=== PATIENT | male | born 1945 | race Caucasian/White ===

== ENCOUNTER 2019-05-31 10:00 | Outpatient (CLI) | payer MEDICARE, BC, SELFPAY ==
--- NOTE | 2019-05-31 10:09 | FL_ITS ---
WS: [id number] [place] barium swallow [id number] REASON FOR EXAM: ESOPHAGEAL DYSPHAGIA FLUOROSCOPY TIME: 1.1 minutes FINDINGS: In the proximal esophagus there appears to be a small Zenker's diverticulum this is inferio r to the metal plate anteriorly place. There is mild lateral displacement of the barium swallow towar d the left side The distal esophagus was normal no reflux was noted. The stomach was normal as well as the duodenum.. FL/FL barium swallow [id number] IMPRESSION: Small diverticula most likely a Zenker's diverticulum in the upper esophagus There is mild lateral displacement of the barium column toward the left side in the area of the plating anteriorly. The remaining swallow study was normal and the stomach was normal.
== END 2019-05-31 10:01 | disposition home or self-care (01) ==
LOC: RAD 10:01
PROVIDERS: Family Provider Family Medicine; Visit Provider Family Medicine
DX: R13.19 Other dysphagia (principal)
CPT/HCPCS: 74220

== ENCOUNTER 2021-05-16 11:44 | Emergency (ER) | payer MEDICARE, BC, SELFPAY ==
[2021-05-16 12:33] VITALS: BP 123/81; PULSE 76; RESP 16; TEMP 36.4; O2SAT 100; BMI 18.7
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
[2021-05-16] MEDS: dexamethasone 10 mg/mL INJ IM (13:36)
[2021-05-16] MEDS: ketorolac 30 mg/mL INJ IM (13:36)
[2021-05-16] MEDS: orphenadrine 30 mg/mL Inj 2 mL 60 MG IM (13:36)
--- NOTE | 2021-05-18 10:31 | DCPLANNER ---
Addendum entered by Ann Varner 06/12/21 13:51: engineering manager was told that when clinic called patient to schedule a follow up appointment, that patient stated that he is following up where he lives. Original Note: engineering manager had message to schedule a follow up appointment for patient with ortho. engineering manager called the ortho clinic, spoke with Caitlin, gave clinic patients information. engineering manager was told that patients information would be printed and reviewed. Clinic will call patient with appointment information.
== END 2021-05-16 14:04 | disposition home or self-care (01) ==
PROVIDERS: Emergency Provider Nurse Practitioner Family
DX: M54.12 Radiculopathy, cervical region (principal)
CPT/HCPCS: 96372; 99283; J1100; J1885; J2360

== ENCOUNTER → 2022-09-21 11:07 | Outpatient (BNVA) | payer MEDICARE, BC, SELFPAY | PROVIDERS: PCP Family Medicine; Visit Provider Nurse Practitioner Family | DX: L81.4 Other melanin hyperpigmentation (principal); D22.5 Melanocytic nevi of trunk; Z71.89 Other specified counseling; L85.3 Xerosis cutis; L57.8 Other skin changes due to chronic exposure to nonionizing radiation; L57.0 Actinic keratosis; D69.2 Other nonthrombocytopenic purpura; L44.8 Other specified papulosquamous disorders; L82.1 Other seborrheic keratosis; L82.0 Inflamed seborrheic keratosis; Z85.828 Personal history of other malignant neoplasm of skin | CPT/HCPCS: 17004; 17110; 99213 ==

== ENCOUNTER → 2022-12-31 11:12 | Outpatient (BNVA) | payer MEDICARE, BC, SELFPAY | PROVIDERS: PCP Family Medicine; Visit Provider Nurse Practitioner Family | DX: Z12.5 Encounter for screening for malignant neoplasm of prostate (principal); M77.9 Enthesopathy, unspecified; M54.9 Dorsalgia, unspecified | CPT/HCPCS: G0103 ==

== ENCOUNTER → 2023-01-06 09:58 | Outpatient (BNVA) | payer MEDICARE, BC, SELFPAY | PROVIDERS: PCP Nurse Practitioner Family; Visit Provider Nurse Practitioner Family | DX: R97.20 Elevated prostate specific antigen [PSA] (principal); M54.9 Dorsalgia, unspecified; N39.0 Urinary tract infection, site not specified | CPT/HCPCS: 81000; 87086 ==

== ENCOUNTER → 2023-10-26 15:07 | Outpatient (BNVA) | payer MEDICARE, BC, SELFPAY | PROVIDERS: PCP Nurse Practitioner Family; Visit Provider Nurse Practitioner Family | DX: L57.0 Actinic keratosis (principal); D22.5 Melanocytic nevi of trunk; L82.1 Other seborrheic keratosis; L57.8 Other skin changes due to chronic exposure to nonionizing radiation; Z85.828 Personal history of other malignant neoplasm of skin; L81.4 Other melanin hyperpigmentation; D18.01 Hemangioma of skin and subcutaneous tissue | CPT/HCPCS: 17004; 99213 ==

== ENCOUNTER → 2024-01-31 13:41 | Outpatient (BNVA) | payer MEDICARE, BC, SELFPAY | PROVIDERS: PCP Nurse Practitioner Family; Visit Provider Nurse Practitioner Family | DX: L57.0 Actinic keratosis (principal); D69.2 Other nonthrombocytopenic purpura; D48.5 Neoplasm of uncertain behavior of skin; L57.8 Other skin changes due to chronic exposure to nonionizing radiation; Z85.828 Personal history of other malignant neoplasm of skin | CPT/HCPCS: 11102; 17000; 99213 ==

== ENCOUNTER → 2024-11-16 11:26 | Outpatient (BNVA) | payer MEDICARE, BC, SELFPAY | PROVIDERS: PCP Nurse Practitioner Family; Visit Provider Nurse Practitioner Family | DX: L82.1 Other seborrheic keratosis (principal); L82.0 Inflamed seborrheic keratosis; L57.0 Actinic keratosis; D48.5 Neoplasm of uncertain behavior of skin | CPT/HCPCS: 11102; 17004; 99214 ==

== ENCOUNTER → 2024-12-12 10:06 | Outpatient (BNVA) | payer MEDICARE, BC, SELFPAY | PROVIDERS: PCP Nurse Practitioner Family; Visit Provider Dermatology | DX: D04.39 Carcinoma in situ of skin of other parts of face (principal) | CPT/HCPCS: 17282 ==